=== PATIENT | female | born 1950 | race African-American/Black ===

== ENCOUNTER 2024-05-12 02:40 | Emergency (ER) | payer OTHER, MEDICAID ==
[~2024-05-12] VITALS: Ht 175.3 cm; Wt 80.0 kg
[2024-05-12 03:04] VITALS: O2SAT 100
[2024-05-12] MEDS ORDERED: NOREPINEPHRINE 8MG/250ML PMX 250 ML IV ONE (03:14)
[2024-05-12] MEDS: NOREPINEPHRINE 8MG/250ML PMX 250 ML IV ONE (03:24)
[2024-05-12] MEDS: SODIUM CHLORIDE 0.9% 1,000 ML IV ONE ×2 (03:34→09:49)
[2024-05-12 04:52] LABS: BG BASE EXCESS -8.8 mmol/L (-2.0-3.0); BG CARBOXYHEMOGLOBIN 0.3 % (0.5-1.5); BG DEOXYHEMOGLOBIN 0.5 % (0.0-5.0); BG FRACTION INSPIRED OXYGEN 40; BG HCO3 ACT 15.6 mmol/L (21.0-28.0); BG METHEMOGLOBIN 0.1 % (0.5-1.5); BG OXYGEN SATURATION 99.5 % (94.0-98.0); BG OXYHEMOGLOBIN 99.1 % (94.0-98.0); BG PCO2 28.4 mmHg (32.0-45.0); BG PH 7.357 (7.350-7.450); BG PO2 271.9 mmHg (83.0-108.0); BG SAMPLE SITE RIGHT RADIAL; BG TOTAL HEMOGLOBIN 9.8 g/dL (12.0-16.0); BG VENT MODE NASAL CANNULA
[2024-05-12] MEDS: ACETAMINOPHEN 1000MG/100ML 100 ML IV ONE (05:29)
[2024-05-12 05:44] LABS: BASOPHILS % 0.4 % (0.0-2.0); DIFFERENTIAL COMMENT 0; EOSINOPHILS % 0.2 % (0.0-5.0); HEMATOCRIT. 31.6 % (36.0-48.0); HEMOGLOBIN. 9.4 g/dL (12.0-16.0); LYMPHOCYTES % 11.7 % (20.0-50.0); MEAN CORPUSCULAR HGB CONC 29.9 g/dL (31.0-37.0); MEAN PLATELET VOLUME 8.8 fl (7.4-10.4); MONOCYTES % 6.8 % (2.0-8.0); NEUTROPHILS % 80.9 % (40.0-76.0); PLATELET 178 x1000/uL (130-400); RED BLOOD CELL COUNT 3.63 mill/uL (4.2-5.4); RED CELL DISTRIBUTION WIDTH 19.8 % (11.6-14.6); WHITE BLOOD COUNT 9.6 x1000/uL (4.5-11.0)
[2024-05-12 05:58] LABS: AMMONIA 58 uMol/L (<32)
[2024-05-12 06:47] LABS: LACTIC ACID 8.7 mmol/L (0.4-2.0)
[2024-05-12 06:50] LABS: INR 1.4; PROTHROMBIN TIME 15.2 sec (9.6-11.0)
[2024-05-12] MEDS: PIPERACILLIN/TAZO 3.375G/50ML 50 ML IV STA (09:29)
[2024-05-12] MEDS: VANCOMYCIN 1G PREMIX 200 ML IV STA (09:49)
[2024-05-12] MEDS: ACETAMINOPHEN 325MG TABLET PO PRN (11:02)
[2024-05-12] MEDS ORDERED: DOCUSATE SODIUM 100MG CAPSULE PO PRN (11:15)
[2024-05-12] MEDS ORDERED: ACETAMINOPHEN 325MG TABLET PO PRN (11:15)
[2024-05-12] MEDS ORDERED: IPRATROPIUM/ALBUTEROL 0.5-3(2.5)MG/3ML NEB HHN PRN (11:15)
[2024-05-12] MEDS ORDERED: MAGNESIUM/ALUMINUM HYDROXIDE/SIMETHICONE 30ML UDC PO PRN (11:15)
[2024-05-12] MEDS ORDERED: CLONIDINE 0.1MG TABLET PO PRN (11:15)
[2024-05-12] MEDS ORDERED: ONDANSETRON HCL 4MG/2ML INJ IV PRN (11:15)
[2024-05-12] MEDS: SODIUM CHLORIDE 0.9% 1,000 ML IV SCH ×2 (11:18→14:26)
[2024-05-12 12:01] LABS: HEMATOCRIT. 28.7 % (36.0-48.0); HEMOGLOBIN. 8.8 g/dL (12.0-16.0); MEAN CORPUSCULAR HEMOGLOBIN 25.6 pg (28.0-32.0); MEAN CORPUSCULAR HGB CONC 30.7 g/dL (31.0-37.0); MEAN CORPUSCULAR VOLUME 83.3 fL (81.0-99.0); MEAN PLATELET VOLUME 8.6 fl (7.4-10.4); PLATELET 141 x1000/uL (130-400); RED BLOOD CELL COUNT 3.44 mill/uL (4.2-5.4); RED CELL DISTRIBUTION WIDTH 18.4 % (11.6-14.6); WHITE BLOOD COUNT 13.3 x1000/uL (4.5-11.0)
[2024-05-12 12:16] LABS: CHLORIDE 110 mEq/L (98-107); POTASSIUM 5.2 mEq/L (3.5-5.1); SODIUM 138 mEq/L (136-145)
[2024-05-12 12:17] LABS: CARBON DIOXIDE 14 mEq/L (21-32)
[2024-05-12 12:22] LABS: CREATININE 1.9 mg/dL (0.6-1.0); GLUCOSE 279 mg/dL (70-105); UREA NITROGEN BLOOD 38 mg/dL (9-23)
[2024-05-12 12:24] LABS: ACETAMINOPHEN 36 ug/mL (10-30); CREATINE KINASE 71 IU/L (34-145)
[2024-05-12 12:26] LABS: T4 FREE 1.06 ng/dL (0.89-1.76)
[2024-05-12 12:27] LABS: DIFFERENTIAL COMMENT 1; THYROID STIMULATING HORMONE 1.94 uIU/mL (0.55-4.78)
[2024-05-12 12:30] LABS: FOLIC ACID (FOLATE) SERUM 17.37 ng/mL (>5.38)
[2024-05-12 12:31] LABS: VITAMIN B12 SERUM 1589 pg/mL (211-911)
[2024-05-12 12:57] LABS: ETHANOL BLOOD < 10 mg/dL (<10)
[2024-05-12] MEDS ORDERED: NOREPINEPHRINE 32 MG in DEXT 5% WATER 218 ML IV PRN (13:00)
[2024-05-12] MEDS ORDERED: DEXTROSE 50% WATER 50ML SYRINGE IV PRN (13:00)
[2024-05-12] MEDS ORDERED: SODIUM BICARBONATE 100 MEQ in SODIUM CHLORIDE 0.45% 1,000 ML IV ONE (13:15)
[2024-05-12 13:16] LABS: ANISOCYTOSIS 2+; PLATELET ESTIMATE NORMAL
[2024-05-12 14:05] LABS: TROPONIN I HIGH SENSITIVITY 1144 ng/L (3.0-34)
[2024-05-12] MEDS: BLOOD SUGAR DIAGNOSTIC STRIP TEST SCH (14:20)
[2024-05-12] MEDS: INSULIN LISPRO 100 UNITS/ML SUBCUT SCH (14:23)
[2024-05-12] MEDS: ENOXAPARIN 40MG/0.4ML SYR SUBCUT SCH (14:26)
[2024-05-12] MEDS: PIPERACILLIN/TAZO 3.375G/50ML 50 ML IV SCH (14:35)
[2024-05-12] MEDS: SODIUM CHLORIDE 0.45% IV ONE (15:00)
[2024-05-12] MEDS: SODIUM BICARBONATE IV ONE (15:00)
[2024-05-12 16:19] LABS: CHLORIDE 109 mEq/L (98-107); POTASSIUM 5.3 mEq/L (3.5-5.1); SODIUM 139 mEq/L (136-145)
[2024-05-12 16:20] LABS: CALCIUM 8.3 mg/dL (8.7-10.4); CARBON DIOXIDE 16 mEq/L (21-32)
[2024-05-12 16:25] LABS: GLUCOSE 289 mg/dL (70-105); IRON 135 ug/dL (50-170); UREA NITROGEN BLOOD 38 mg/dL (9-23)
[2024-05-12 16:27] LABS: CREATINE KINASE 82 IU/L (34-145); PHOSPHORUS 5.4 mg/dL (2.5-4.9)
[2024-05-12 16:28] LABS: TOTAL IRON BINDING CAPACITY 160 ug/dl (250-425)
[2024-05-12 16:42] LABS: TROPONIN I HIGH SENSITIVITY 1039 ng/L (3.0-34)
[2024-05-12 16:43] LABS: BILIRUBIN TOTAL 0.9 mg/dL (0.1-1.0)
[2024-05-12] MEDS: NOREPINEPHRINE 32 MG in DEXT 5% WATER 218 ML IV PRN (16:53)
[2024-05-12] MEDS ORDERED: DOPAMINE 400MG/250ML PREMIX 250 ML IV PRN (18:30)
[2024-05-12] MEDS: SODIUM ZIRCONIUM CYCLOSILICATE 10GM/PACKET PO NR (19:05)
[2024-05-12] MEDS ORDERED: FAMOTIDINE 20MG TABLET PO SCH (21:00)
[2024-05-13] MEDS ORDERED: PROPOFOL 10MG/ML 100ML 100 ML IV PRN ×2 (02:30)
[2024-05-13] MEDS ORDERED: NOREPINEPHRINE 8MG/250ML PMX 250 ML IV PRN (02:30)
[2024-05-13 02:41] VITALS: BP 106/74; O2SAT 94
[2024-05-13 03:00] VITALS: PULSE 137; RESP 22
[2024-05-13] MEDS ORDERED: VASOPRESSIN 20 UNIT in SODIUM CHLORIDE 0.9% 99 ML IV PRN ×2 (03:00→03:15)
[2024-05-13] MEDS ORDERED: EPINEPHRINE 10 MG in SODIUM CHLORIDE 0.9% 240 ML IV PRN ×2 (03:30→03:45)
[2024-05-13] MEDS ORDERED: DOPAMINE 800MG PREMIX (DOUBLE) 250 ML IV PRN ×2 (03:30→03:45)
[2024-05-13] MEDS ORDERED: VANCOMYCIN 750MG/150ML (BAXTER) IV SCH (09:00)
== END 2024-05-13 06:15 ==
LOC: ER 02:40 → EDBEDREQTM 07:05 → EDBEDREQ 07:05 → ER 05-13 06:15
DX: G93.40 Encephalopathy, unspecified (principal); I95.9 Hypotension, unspecified; I13.0 Hypertensive heart and chronic kidney disease with heart failure and stage 1 through stage 4 chronic kidney disease, or unspecified chronic kidney disease; E11.22 Type 2 diabetes mellitus with diabetic chronic kidney disease; I50.9 Heart failure, unspecified; N18.9 Chronic kidney disease, unspecified; N17.9 Acute kidney failure, unspecified; E78.5 Hyperlipidemia, unspecified; I21.4 Non-ST elevation (NSTEMI) myocardial infarction; I71.00 Dissection of unspecified site of aorta; Z79.899 Other long term (current) drug therapy; Z87.19 Personal history of other diseases of the digestive system
CPT/HCPCS: 80048; 80307; 80329; 80320; 82140; 82247; 82550; 82607; 82728; 82746; 82962; 83036; 83880; 84439; 83540; 83550; 83605; 83690; 83735; 84075; 84100; 84443; 84450; 84460; 85025; 85610; 86850; 86900; 86901; 87040; 84484; 36415; 84145; 71045; 72170; 70450; 93970; 76705; 76770; 82805; 82375; 93005; 96367; 96368; 96365; 96366; 96372; 96375; 99291; 36600; 92950; 31500; J1650; J1815; J3490 ×3; J2543; J3370; J7030; A4663; J2704; J7050; 94002; A4606; J7060; G0480; J0131